=== PATIENT | male | born 1980 | race Caucasian/White ===

== ENCOUNTER 2019-11-13 23:17 | Emergency (ER) | payer BC, SELFPAY ==
[2019-11-13 23:34] VITALS: BP 127/84; PULSE 83; RESP 22; TEMP 36.8; O2SAT 100
--- NOTE | 2019-11-14 00:44 | ED.WOUNDLAC ---
HPI - Wound/Laceration General Chief Complaint: Wound/Laceration Stated Complaint: SPIDER BITES Time Seen by Provider: 11/14/19 00:31 Source: patient and RN notes reviewed Mode of arrival: ambulatory Limitations: no limitations History of Present Illness HPI narrative: A 39 y/o male presents to the ED because he believes that he might have a spider bite on his rt calf. He states that he was sweeping last night when he developed a sharp pain in his rt calf that felt like a bee sting . He denies any fevers, chills, SOB, CP, tingling, numbness, N/V/D, or ABD pain. Onset (ago): day(s) (last night) Extremity Location: Right: lower leg (calf) Place: home Context: other (possible spider bite) Associated symptoms: pain Related Data Home Medications Medication Instructions Recorded Confirmed No Home Medications 09/17/19 11/14/19 Allergies Allergy/AdvReac Type Severity Reaction Status Date / Time No Known Allergies Allergy Unverified 11/14/19 00:54 Review of Systems Review of Systems: All systems reviewed & are unremarkable except as noted in HPI and below Constitutional: Constitutional: Denies chills and Denies fever(s) Cardiovascular: Cardiovascular: Denies chest pain Respiratory: Respiratory: Denies dyspnea Gastrointestinal: Gastrointestinal: Denies abdominal pain, Denies diarrhea, Denies nausea and Denies vomiting Musculoskeletal: Musculoskeletal: Reports other (sharp rt calf pain) Neurologic: Denies numbness and Denies tingling PMFSH Past Medical History Medical History (Updated 11/14/19 @ 00:55 by Joe Peace) Healthy adult male Surgical History Surgical History History of bowel resection Family History Family History Mother Diabetes mellitus Social History Social History (Updated 11/14/19 @ 00:56 by Joe Peace) Smoking status: Smoker, status unknown Tobacco type: e-cigarettes Alcohol intake: unknown Substance use: former Substance use type: former substance user Gender identity (if verbalized by the patient): Male Comments PCP: Dr. Florian. Exam Const: General: healthy appearing and no acute distress Nutritional Appearance: well nourished HENMT: Mouth: Yes lip normal and Yes moist mucous membranes Eyes: Conjunctivae: conjunctivae normal Pupils: Equal, round and reactive pupils present Resp: Effort & Inspection: normal respiratory effort Auscultation: clear to auscultation bilaterally Cardio: Rate: regular rate Rhythm: regular rhythm Heart sounds: no murmurs GI: GI Palp: Yes Soft to palpation and No Tenderness to palpation present (GI) Auscultation: normal bowel sounds Back/Spine/Pelvis: Other: Full ROM. Skin: General skin exam: normal color, dry skin and other (warm) Wounds: wounds noted abrasion to rt calf with minimal punctate erythema to multiple surrounding follicles Neuro: General: patient oriented x3 (alert) Speech: normal speech Extrem: General: full ROM Psych: Mental Status: mental status grossly normal Affect: normal affect Course Vital Signs Vital signs: Vital Signs Temperature 36.8 C 11/13/19 23:34 Pulse Rate 83 11/13/19 23:34 Respiratory Rate 22 H 11/13/19 23:34 Blood Pressure 127/84 11/13/19 23:34 Pulse Oximetry 100 11/13/19 23:34 Temperature 36.8 C 11/13/19 23:34 Pulse Rate 83 11/13/19 23:34 Respiratory Rate 22 H 11/13/19 23:34 Blood Pressure 127/84 11/13/19 23:34 Pulse Oximetry 100 11/13/19 23:34 MDM - Wound/Laceration MDM Narrative Medical decision making narrative: He does have minimal erythema on exam.. Nt concerning for any significant infection. It looks like he sustained an abrasion with resultant irritation of the surrounding follicles. Differential Diagnosis Differential diagnosis: Likely abrasion and other Medical Records Attestation: I reviewed the patient's medical records. Discharge P
== END 2019-11-14 01:00 | disposition home or self-care (01) ==
PROVIDERS: Emergency Provider Emergency Medicine
DX: L73.9 Follicular disorder, unspecified (principal)
CPT/HCPCS: 99281

== ENCOUNTER 2020-03-05 13:03 | Emergency (ER) | payer BC, SELFPAY ==
--- NOTE | ~2020-03-05 | US_ITS ---
EXAMINATION: US scrotum doppler DATE: 03/05/2020 14:09 INDICATION: Right testicular pain and swelling. TECHNIQUE: Grayscale and Doppler ultrasound images of the testes were obtained. COMPARISON: None. FINDINGS: The right testis measures 4.6 x 3.0 x 2.6 cm. The left testis measures 3.8 x 2.5 x 1.9 cm. There is normal vascular flow to both testes. The right epididymis demonstrates increased vascular fl ow. The left epididymis is normal with normal vascular flow. There is no varicocele or hydrocele. IMPRESSION: 1. Hyperemic right epididymis, consistent with epididymitis. Reviewed, dictated and finalized at location A.
[2020-03-05 13:07] VITALS: BP 127/87; PULSE 71; RESP 18; TEMP 36.8; O2SAT 97
--- NOTE | 2020-03-05 13:30 | ED.ABDPAIN ---
HPI - Abdominal Pain General Chief Complaint: Urogenital-Male <Gianni Kumar PA-C - Last Filed: 03/05/20 15:29> Stated Complaint: SWOLLEN R TESTICLE XTD <Gianni Kumar PA-C - Last Filed: 03/05/20 15:29> Time Seen by Provider: 03/05/20 13:14 <Gianni Kumar PA-C - Last Filed: 03/05/20 15:29> Source: patient <Gianni Kumar PA-C - Last Filed: 03/05/20 15:29> Mode of arrival: ambulatory <Gianni Kumar PA-C - Last Filed: 03/05/20 15:29> Limitations: no limitations <Gianni Kumar PA-C - Last Filed: 03/05/20 15:29> History of Present Illness HPI narrative: Patient is a 39-year-old male who presents to emergency department for evaluation of right testicular pain and swelling noting that approximately 7:00 yesterday started developing some right testicular pain is a mild sharp pain worse with activity and movement which has worsened today coupled with testicular swelling patient denies similar occurrence in the past patient does not take anything for symptoms presents per private vehicle. Patient has not taken anything for his symptoms denies injury or trauma or recent illness <Gianni Kumar PA-C - Last Filed: 03/05/20 15:29> Related Data Allergies/Adverse Reactions: Allergies Allergy/AdvReac Type Severity Reaction Status Date / Time No Known Allergies Allergy Verified 03/05/20 13:11 <Gianni Kumar PA-C - Last Filed: 03/05/20 15:29> Review of Systems Review of Systems: All systems reviewed & are unremarkable except as noted in HPI and below <Gianni Kumar PA-C - Last Filed: 03/05/20 15:29> PMFSH Past Medical History Medical History: Medical History Healthy adult male <JAYME Hernandez Last Filed: 03/05/20 15:29> Surgical History Surgical History: Surgical History History of bowel resection <JAYME Hernandez Last Filed: 03/05/20 15:29> Social History Social History: Social History Smoking status: Smoker, status unknown Tobacco type: e-cigarettes/vaping Alcohol intake: unknown Substance use: former Substance use type: former substance user Gender identity (if verbalized by the patient): Male <Gianni Kumar PA-C - Last Filed: 03/05/20 15:29> Exam Narrative: Exam Narrative: GENERAL: Well-appearing, well-nourished, and in no acute distress. HEAD: Normocephalic, atraumatic. EYES: PERRLA and EOMI. ENT: Nares clear, no rhinorrhea or epistaxis. Mucous membranes moist. CHEST: Clear to auscultation. No respiratory distress. No wheezes rales or rhonchi HEART: Regular rate and rhythm. No murmur heard. Normal peripheral pulses. ABDOMEN: Soft, nontender, nondistended MALE GENITOURINARY: Swelling and tenderness of the right testicle normal scrotum EXTREMITIES: Normal range of motion. No edema. SKIN: Warm, dry, no rash. NEURO: No focal deficits. Alert and oriented x3. PSYCH: Normal mood and affect. <Gianni Kumar PA-C - Last Filed: 03/05/20 15:29> Course Course Emergency Course: Patient in the room in no distress aware of case findings treatment plan and diagnosis as well as imaging finding agreeing to follow-up with specialist for reevaluation <Gianni Kumar PA-C - Last Filed: 03/05/20 15:29> Vital Signs Vital signs: Vital Signs Temperature 36.8 C 03/05/20 13:07 Pulse Rate 71 03/05/20 13:07 Respiratory Rate 18 03/05/20 13:07 Blood Pressure 127/87 03/05/20 13:07 Pulse Oximetry 97 03/05/20 13:07 Temperature 36.8 C 03/05/20 13:07 Pulse Rate 71 03/05/20 13:07 Respiratory Rate 18 03/05/20 13:07 Blood Pressure 127/87 03/05/20 13:07 Pulse Oximetry 97 03/05/20 13:07 <Gianni Kumar PA-C - Last Filed: 03/05/20 15:29> Vital Signs Temperature 36.8 C
[2020-03-05 14:46] LABS: Basophils Percent Auto 0.4 % (0.2-1.2); Eosinophils Absolute Auto 0.1 K/mm3 (0-0.3); Eosinophils Percent Auto 0.5 % (0-4.4); Hematocrit 43.7 % (42.0-52.0); Hemoglobin 14.7 g/dL (14.0-18.0); Immature Granulocyte Absolute 0.02 K/mm3 (0.00-0.031); Immature Granulocyte Percent A 0.2 % (0-0.5); Lymphocytes Absolute Auto 3.84 K/mm3 (0.9-3.2); Lymphocytes Percent Auto 35.8 % (18.3-44.2); Mean Corpuscular HGB Conc 33.6 g/dl (32-36); Mean Corpuscular Hemoglobin 32.2 pg (26-34); Mean Corpuscular Volume 95.6 fl (80-100); Mean Platelet Volume 9.9 fl (7.4-10.4); Monocytes Absolute Auto 0.8 K/mm3 (0.1-0.6); Neutrophils Percent Auto 56.1 % (45.5-73.1); Platelet Count Result 236 k/mm3 (150-375); Red Blood Count 4.57 M/mm3 (4.6-6.20); Red Cell Distribution Width 12.6 % (11.5-14.5); White Blood Count 10.7 K/mm3 (4.5-10.0)
[2020-03-05 14:53] LABS: Add Urine Microscopic? YES; Appearance Urine Clear (Clear); Bilirubin Urine Negative (Negative); Blood Urine Negative (Negative); Color Urine Yellow (Yellow); Glucose Urine UA Negative (Negative); Ketones Urine Negative (Negative); Leukocyte Esterase Ur 2+ LEU/UL (Negative); Mucus Urine Rare /lpf; Nitrate Urine Negative (Negative); Protein Urine Negative (Negative); Specific Grav Ur 1.025 (1.001-1.035); Squamous Epithelial Cell Urine Few /hpf (Few); WBC Urine 51-75 /hpf
[2020-03-05 15:01] LABS: Alanine Aminotransferase 61 U/L (4-50); Albumin Level 5.1 g/dL (3.5-5.1); Alkaline Phosphatase 79 U/L (38-126); Aspartate Amino Transferase 42 U/L (17-59); Bilirubin,Total 0.8 mg/dL (0.2-1.3); Blood Urea Nitrogen 14 mg/dL (9-20); Calcium 9.9 mg/dL (8.4-10.2); Carbon Dioxide 29 mmol/L (22-30); Chloride 103 mmol/L (98-107); Estimated CRCL calculation 104 ml/min; Estimated Glomerular Filt Rate > 60; Glucose 72 mg/dL (75-110); Potassium 3.6 mmol/L (3.4-5.0); Sodium 139 mmol/L (137-145)
[2020-03-05] MEDS: SODIUM CHLORIDE 0.9% IV 1,000 ML 999 ML IV CONT (15:21)
[2020-03-05] MEDS: KETOROLAC 30 MG/ML VIAL (*BKC) IV PUSH (15:22)
[2020-03-05 16:28] VITALS: BP 123/74; PULSE 60; RESP 18; O2SAT 100
== END 2020-03-05 16:29 | disposition home or self-care (01) ==
PROVIDERS: Emergency Medicine Emergency Medical Services; Emergency Provider Emergency Medicine
DX: N45.1 Epididymitis (principal); F17.290 Nicotine dependence, other tobacco product, uncomplicated
CPT/HCPCS: 36415; 76870; 80053; 81001; 85025; 87086; 87491; 87591; 93976; 96361; 96365; 96375; 99284; J0696; J1885; J7030

== ENCOUNTER 2021-03-30 16:02 | Emergency (ER) | payer BC, MEDICAID, SELFPAY ==
--- NOTE | 2021-03-30 16:11 | ED.DENTAL ---
HPI - Dental/Oral General Chief complaint: Dental/Oral Stated complaint: Tooth Pain Time Seen by Provider: 03/30/21 16:11 Source: patient and RN notes reviewed Mode of arrival: ambulatory Limitations: no limitations History of Present Illness HPI Narrative: 40-year-old male presents to [facility] with complaints of dental pain. Pain is to the right upper molars. Multiple decayed teeth noted. Patient states the pain has been going on for approximately 10 days. No recent dental treatment. States he is unable to find a dentist that will take him. No facial symmetry noted. No fevers. No chest pain or abdominal pain. No nausea vomiting or diarrhea. Very poor dentition throughout mouth Related Data Allergies Allergy/AdvReac Type Severity Reaction Status Date / Time No Known Allergies Allergy Verified 03/30/21 16:19 Review of Systems Review of Systems: All systems reviewed & are unremarkable except as noted in HPI and below Constitutional: Constitutional: Reports no additional constitutional complaints, Denies chills and Denies fever(s) Eyes: Eyes: Reports no additional eye complaints ENT: Reports as per HPI Comments: Dental pain Cardiovascular: Cardiovascular: Reports no additional cardiovascular complaints and Denies chest pain Respiratory: Respiratory: Reports no additional respiratory complaints, Denies cough and Denies dyspnea Musculoskeletal: Musculoskeletal: Reports no additional musculoskeletal complaints, Denies back pain, Denies myalgias, Denies arthralgias and Denies joint swelling Integumentary/Breasts: Skin/Breast: Reports system reviewed and no additional complaints, except as docu and Denies rash Neurologic: Reports system reviewed and no additional complaints, except as documented, Denies confusion, Denies vertigo, Denies dizziness, Denies syncope, Denies headache(s), Denies focal weakness, Denies numbness and Denies weakness Psychiatric: Psychiatric: Reports no additional psychiatric complaints Allergic/Immunologic: Allergic/Immunologic: Reports no additional allergic/immunologic complaints PMF Past Medical History Medical History (Updated 03/30/21 @ 16:19 by Janel Snowden) Healthy adult male Surgical History Surgical History History of bowel resection Family History Family History Mother Diabetes mellitus Social History Social History Smoking status: Smoker, status unknown Tobacco type: e-cigarettes/vaping Alcohol intake: unknown Substance use: former Substance use type: former substance user Gender identity (if verbalized by the patient): Male Comments At the time of my signature, I reviewed and agree with the nursing past medical, surgical, social, and family history. There is no relevant family history pertinent to the patient complaint. Exam Const: General: healthy appearing, no acute distress and alert Nutritional Appearance: thin Orientation/consciousness: patient oriented x3 HENMT: Head: normal to inspection Ears: hearing grossly normal bilaterally, external ears normal, TM's normal bilaterally, EAC's normal, mastoids normal and no periauricular adenopathy General nose exam: Normal external nose present, Normal nares present and Normal nasal mucous membranes and turbinates present Face and sinus: normal facial exam and face symmetric Mouth: Yes Normal oral and palatal mucosa present, Yes lip normal and Yes tongue normal Teeth and gingiva: abnormal tooth and associated gingiva (Very poor dentition) and poor dentition Throat: posterior oropharynx normal, tonsils normal and uvula midline Eyes: Conjunctivae: conjunctivae normal Pupils: Equal, round and reactive pupils present Neck: Neck: normal visual inspection, no lymphadenopathy and no meningeal signs Chest: Chest palpation & inspection: normal inspection of th
[2021-03-30 16:13] VITALS: BP 117/69; PULSE 84; RESP 16; TEMP 36.7; O2SAT 98
== END 2021-03-30 16:23 | disposition home or self-care (01) ==
PROVIDERS: Emergency Provider Nurse Practitioner
DX: K04.7 Periapical abscess without sinus (principal); K02.9 Dental caries, unspecified
CPT/HCPCS: 99213; G0463

== ENCOUNTER 2022-01-28 17:01 | Emergency (ER) | payer BC, MEDICAID, SELFPAY ==
[2022-01-28 17:04] VITALS: BP 106/64; PULSE 56; RESP 18; TEMP 36.6; O2SAT 100
--- NOTE | 2022-01-28 18:21 | PC.NURSE ---
Provider at bedside to assess pt.
--- NOTE | 2022-01-28 18:24 | ED.DENTAL ---
HPI - Dental/Oral General Chief complaint: Dental/Oral Stated complaint: tooth infection Time Seen by Provider: 01/28/22 18:00 Source: patient Mode of arrival: ambulatory Limitations: no limitations History of Present Illness HPI Narrative: 41 y/o male presents to the ER this evening for left upper dental pain with gum and facial swelling. He says that it started 2 days ago. He does not have a dental provider. 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 He understands that this is destroying his teeth. He is going to outpatient substance abuse program. He says he uses about 7 days out of the month. He has not had any fever or chills. He is not under the influence this evening. Related Data Allergies Allergy/AdvReac Type Severity Reaction Status Date / Time No Known Allergies Allergy Verified 03/30/21 16:19 Review of Systems Constitutional: Constitutional: Denies chills, Denies fatigue and Denies fever(s) Eyes: Eyes: Reports no additional eye complaints ENT: Reports as per HPI and Denies sore throat Cardiovascular: Cardiovascular: Denies chest pain and Denies radiating jaw, neck or arm pain Respiratory: Respiratory: Denies chest congestion, Denies cough, Denies dyspnea and Denies wheezing Gastrointestinal: Gastrointestinal: Denies diarrhea, Denies nausea and Denies vomiting Genitourinary: Genitourinary: Reports no additional male genitourinary complaints Musculoskeletal: Musculoskeletal: Denies back pain, Denies myalgias, Denies arthralgias and Denies joint swelling Neurologic: Denies dizziness, Denies headache(s) and Denies numbness Psychiatric: Psychiatric: Denies anxiety and Denies depression Hematologic/Lymphatic: Hematologic/Lymphatic: Reports no additional hematologic/lymphatic complaints Allergic/Immunologic: Allergic/Immunologic: Reports no additional allergic/immunologic complaints [facility] Past Medical History Medical History (Updated 01/28/22 @ 18:31 by Aparna Everett APRN) Healthy adult male Surgical History Surgical History History of bowel resection Family History Family History Mother Diabetes mellitus Social History Social History Smoking status: Smoker, status unknown Tobacco type: e-cigarettes/vaping Alcohol intake: unknown Substance use: former Substance use type: former substance user Gender identity (if verbalized by the patient): Male Exam Const: General: no acute distress and alert Orientation/consciousness: patient oriented x3 HENMT: Mouth: Yes moist mucous membranes Teeth and gingiva: abnormal tooth and associated gingiva (left upper molar, gum swelling with associated mild facial swelling ) Neck: Neck: normal visual inspection Chest: Chest palpation & inspection: normal inspection of the chest Resp: Effort & Inspection: normal respiratory effort Auscultation: clear to auscultation bilaterally Cardio: Rate: regular rate Rhythm: regular rhythm GI: GI Palp: Yes Soft to palpation Auscultation: normal bowel sounds : Testes: Testes normal Skin: General skin exam: normal color Neuro: General: patient oriented x3 and moves all extremities Extrem: General: no clubbing, cyanosis or edema Psych: Appearance: grossly normal Mental Status: mental status grossly normal Affect: normal affect Attitude: cooperative Thought content: Yes Normal thought content present Course Vital Signs Vital signs: Vital Signs Temperature 36.6 C 01/28/22 17:04 Pulse Rate 56 L 01/28/22 17:04 Respiratory Rate 18 01/28/22 17:04 Blood Pressure 106/64 01/28/22 17:04 Pulse Oximetry 100 01/28/22 17:04 Temperature 36.6 C 01/28/22 17:04 Pulse Rate 56 L 01/28/22 17:04 Respiratory Rate 18 01/28/22 17:04 Blood Pressure 106/64 01/28/22 17:04 Pulse Oximetry 100 01/28/22 17:04
--- NOTE | 2022-01-28 18:46 | PC.NURSE ---
Patient report given to RAHAT Neely and care of pt transferred.
== END 2022-01-28 18:58 | disposition home or self-care (01) ==
PROVIDERS: Emergency Provider Nurse Practitioner Family
DX: K04.7 Periapical abscess without sinus (principal); F17.290 Nicotine dependence, other tobacco product, uncomplicated; F15.90 Other stimulant use, unspecified, uncomplicated
CPT/HCPCS: 99283